=== PATIENT | female | born 1990 | race Caucasian/White ===

== ENCOUNTER 2017-07-16 00:08 | Emergency (ER) | payer OTHER ==
[~2017-07-16] VITALS: Ht 167.6 cm; Wt 80.0 kg
[2017-07-16 00:19] VITALS: Ht 167.6 cm; Wt 80.0 kg
[2017-07-16] MEDS ORDERED: ONDANSETRON 4 MG INJ IM STA (02:11)
[2017-07-16] MEDS ORDERED: ONDA4TAB11 PO (05:48)
[2017-07-16 05:58] VITALS: BP 101/72; PULSE 100; RESP 16; TEMP 98.6
--- NOTE | 2017-07-16 05:59 | ERD ---
ER Documentation Chief Complaint Date/Time DATE: 07/16/17 TIME: 05:56 Chief Complaint edible this morning and multiple shot tonight at wedding HPI This 27-year-old female comes in for vomiting and being intoxicated. She took a marijuana edible this morning and then drink heavily at a wedding today. Is intoxicated and denies any pain currently. ROS Patient is unreliable currently. Unobtainable Medications Home Meds Active Scripts Ondansetron (Zofran Odt) 4 Mg Tab.rapdis, 4 MG PO Q6 for PAIN, #14 Prov:BRIDGET MOSHER DO 07/16/17 Allergies Allergies: Coded Allergies: No Known Allergy (Unverified , 07/16/17) PMhx/Soc Medical and Surgical Hx: pt denies Surgical Hx History of Surgery: No Anesthesia Reaction: No Hx Neurological Disorder: No Hx Respiratory Disorders: No Hx Cardiac Disorders: Yes (HYPOTENSION) Hx Psychiatric Problems: No Hx Miscellaneous Medical Probl: Yes (ANEMIC) Hx Alcohol Use: Yes Hx Substance Use: Yes (marijana edibles) Hx Tobacco Use: No Smoking Status: Never smoker Physical Exam Vitals Vital Signs Date Time Temp Pulse Resp B/P Pulse Ox O2 Delivery O2 Flow Rate FiO2 07/16/17 03:00 98.6 78 16 95/61 98 Room Air 07/16/17 00:49 98.9 82 14 102/69 97 Room Air 07/16/17 00:19 98.4 95 23 110/84 92 Physical Exam Const: [] Moderate distress, vomiting Head: Atraumatic Eyes: Normal Conjunctiva ENT: Normal External Ears, Nose and Mouth. Neck: Full range of motion..~ No meningismus. Resp: Clear to auscultation bilaterally Cardio: RegularTachycardia., no murmurs Abd: Soft, non tender, non distended. Normal bowel sounds Skin: No petechiae or rashes Back: No midline or flank tenderness Ext: No cyanosis, or edema Neur: Awake and alert, Intoxicated, moving all 4, neuro exam not possible currently Psych: Intoxicated, agitated, here for euphoric. Results 24 hrs Current Medications Medications (Trade) Dose Ordered Sig/Yamileth Route PRN Reason Start Time Stop Time Status Last Admin Dose Admin Ondansetron HCl (Zofran Inj) 4 mg ONCE STAT IM 07/16/17 02:11 07/16/17 02:12 DC 07/16/17 02:19 Procedures/MDM Intoxication secondary to heavy drinking and mixing marijuana edible. She was given Zofran injection. She was monitored in the emergency department for several hours afterwards she awoke was clinically sober. Her boyfriend was present in the [place] as well. Neuro exam was performed once again patient has no neurological deficits and does not complain of any pain or other symptoms. She is taking good p.o. We will discharge her with instructions to follow-up with a primary care doctor. I am also giving her Zofran ODT for at home. Departure Diagnosis: Primary Impression: Acute vomiting Additional Impressions: Alcoholic intoxication Marijuana use Condition: Stable Patient Instructions: Alcohol Intoxication, Vomiting (6Y-Adult) Referrals: [facility] YOU HAVE RECEIVED A MEDICAL SCREENING EXAM AND THE RESULTS INDICATE THAT YOU DO NOT HAVE A CONDITION THAT REQUIRES URGENT TREATMENT IN THE EMERGENCY DEPARTMENT. FURTHER EVALUATION AND TREATMENT OF YOUR CONDITION CAN WAIT UNTIL YOU ARE SEEN IN YOUR DOCTORS OFFICE WITHIN THE NEXT 1-2 DAYS. IT IS YOUR RESPONSIBILITY TO MAKE AN APPOINTMENT FOR FOLOW-UP CARE. IF YOU HAVE A PRIMARY DOCTOR --you should call your primary doctor and schedule an appointment IF YOU DO NOT HAVE A PRIMARY DOCTOR YOU CAN CALL OUR PHYSICIAN REFERRAL HOTLINE AT IF YOU CAN NOT AFFORD TO SEE A PHYSICIAN YOU CAN CHOSE FROM THE FOLLOWING [facility] [address] [facility] [facility] [address] [facility] [facility] [address] [facility] [facility] [address] [facility]. [facility] [address] [facility]. [facility]. [address] Additional Instructions: Call your primary care doctor TOMORROW for an appointment during the next 2-3 days.See the doctor sooner or return here if your condition worsens before your appointment time. BRIDGET MOSHER DO Jul 16, 2017 05:59
== END 2017-07-16 06:04 | disposition home or self-care (01) ==
LOC: E/R 00:08
DX: R11.10 Vomiting, unspecified (principal); F10.129 Alcohol abuse with intoxication, unspecified; F12.10 Cannabis abuse, uncomplicated; R40.2142 Coma scale, eyes open, spontaneous, at arrival to emergency department; R40.2222 Coma scale, best verbal response, incomprehensible words, at arrival to emergency department; R40.2352 Coma scale, best motor response, localizes pain, at arrival to emergency department
CPT/HCPCS: 96372; 99284; J2405